=== PATIENT | female | born 2000 | race Hispanic/Latino ===

== ENCOUNTER 2019-10-20 13:15 | Emergency (ER) | payer OTHER | END 2019-10-20 14:45 | disposition home or self-care (01) | LOC: NAV ERS 13:15 | DX: Z20.828 Contact with and (suspected) exposure to other viral communicable diseases (principal) | CPT/HCPCS: 87635; 99283; U0003 ==

== ENCOUNTER 2020-06-02 18:49 | Emergency (ER) | payer OTHER, SELFPAY ==
[2020-06-02] MEDS ORDERED: TETANUS, DIPHTHERIA TOX,ADULT (TDVAX) 0.5 ML VIAL IM ONE (19:43)
[2020-06-02] MEDS ORDERED: Sulfameth/Trimethoprim DS 800-160mg TAB ONE (19:43)
== END 2020-06-02 19:56 | disposition home or self-care (01) ==
LOC: NAV ERS 18:49
DX: L03.115 Cellulitis of right lower limb (principal); Z23 Encounter for immunization
CPT/HCPCS: 90471; 90714

== ENCOUNTER 2021-02-19 18:49 | Emergency (ER) | payer SELFPAY | END 2021-02-19 19:51 | disposition home or self-care (01) | LOC: NAV ERS 18:49 | DX: R10.9 Unspecified abdominal pain (principal) | CPT/HCPCS: 99281 ==

== ENCOUNTER 2024-03-03 11:00 | Emergency (ER) | payer SELFPAY | END 2024-03-03 12:08 | disposition home or self-care (01) | LOC: NAV ERS 11:00 | DX: H10.9 Unspecified conjunctivitis (principal) | CPT/HCPCS: 99283 ==

== ENCOUNTER 2024-04-03 17:41 | Emergency (ER) | payer SELFPAY ==
[2024-04-03] MEDS ORDERED: Ibuprofen 800 MG TAB ONE (18:01)
== END 2024-04-03 18:29 | disposition home or self-care (01) ==
LOC: NAV ERS 17:41
DX: J11.1 Influenza due to unidentified influenza virus with other respiratory manifestations (principal); F17.290 Nicotine dependence, other tobacco product, uncomplicated
CPT/HCPCS: 87428; 99283